=== PATIENT | female | born 1955 | race Hispanic/Latino ===

== ENCOUNTER → 2022-12-21 | Outpatient (CLI) | payer OTHER ==
[~2022-12-21] MED LIST: ASPI-556 PO; CALC-1116 PO; CHOL200074 PO; ENAL-87 PO; GABA-531 PO; GLIM1TAB18 PO; METF-446 PO; SIMV40TA59 PO; TIMO.5OS OU; XALA2.5OS OU
== END | disposition home or self-care (01) ==
LOC: OIH 12:42
PROVIDERS: ATTEND Internal Medicine Cardiovascular Disease
DX: Z13.6 Encounter for screening for cardiovascular disorders (principal); R93.1 Abnormal findings on diagnostic imaging of heart and coronary circulation
CPT/HCPCS: 75571